=== PATIENT | female | born 1940 | race African-American/Black ===

== ENCOUNTER 2017-12-29 16:41 | Emergency (ER) | payer OTHER, MEDICAID ==
[~2017-12-29] VITALS: Ht 170.2 cm; Wt 63.5 kg
[2017-12-29] MEDS ORDERED: SODIUM CHLORIDE 0.9% 1,000 ML IV ONE (18:00)
[2017-12-29 19:26] LABS: CLARITY URINE CLEAR (CLEAR); COLOR URINE YELLOW (YELLOW); KETONES URINE TRACE (NEGATIVE); LEUKOCYTE ESTERASE URINE NEGATIVE (NEGATIVE); NITRITE URINE NEGATIVE (NEGATIVE); OCCULT BLOOD URINE NEGATIVE (NEGATIVE); PH URINE 6.5 (4.5-8.0); PROTEIN URINE NEGATIVE (NEGATIVE); SPECIFIC GRAVITY URINE 1.012 (1.005-1.030)
[2017-12-29 19:42] LABS: BASOPHILS % 0.6 % (0.0-2.0); HEMOGLOBIN. 12.3 g/dL (12.0-16.0); LYMPHOCYTES % 12.5 % (20.0-50.0); MEAN CORPUSCULAR HEMOGLOBIN 28.9 pg (28.0-32.0); MEAN CORPUSCULAR VOLUME 89.3 fL (81.0-99.0); MEAN PLATELET VOLUME 8.3 fl (7.4-10.4); MONOCYTES % 7.5 % (2.0-8.0); NEUTROPHILS % 79.4 % (40.0-76.0); PLATELET 244 x1000/uL (130-400); RED BLOOD CELL COUNT 4.25 mill/uL (4.2-5.4)
[2017-12-29 19:46] LABS: CHLORIDE 106 mEq/L (98-107)
[2017-12-29] MEDS ORDERED: ZOLPIDEM TARTRATE 5MG TABLET PO PRN (20:15)
[2017-12-29] MEDS ORDERED: MAGNESIUM/ALUMINUM HYDROXIDE/SIMETHICONE 30ML UDC PO PRN (20:15)
[2017-12-29] MEDS ORDERED: ENOXAPARIN 40MG/0.4ML SYR SUBCUT SCH (20:15)
[2017-12-29] MEDS ORDERED: ACETAMINOPHEN 325MG TABLET PO PRN (20:15)
[2017-12-29] MEDS ORDERED: GUAIFENESIN 200MG/10ML SUGAR FREE UDC PO PRN (20:15)
[2017-12-29] MEDS ORDERED: NA PHOS,M-B/NA PHOS,DI-BA ENEMA 118ML PR PRN (20:15)
[2017-12-29] MEDS ORDERED: DOCUSATE SODIUM 100MG CAPSULE PO PRN (20:15)
[2017-12-29] MEDS ORDERED: IPRATROPIUM/ALBUTEROL 0.5-3(2.5)MG/3ML NEB INH PRN (20:15)
[2017-12-29] MEDS ORDERED: NITROGLYCERIN 0.4MG TABLET SL SL PRN (20:15)
[2017-12-29] MEDS ORDERED: TRAMADOL 50MG TABLET PO PRN (20:15)
[2017-12-29] MEDS ORDERED: ONDANSETRON HCL 4MG/2ML INJ IV PRN (20:15)
[2017-12-29] MEDS ORDERED: CLONIDINE 0.1MG TABLET PO PRN (20:15)
[2017-12-29 20:49] LABS: T4 FREE 0.92 ng/dL (0.76-1.46)
[2017-12-29] MEDS ORDERED: FAMOTIDINE 20MG TABLET PO SCH (21:00)
[2017-12-29] MEDS ORDERED: ASCORBIC ACID 500 MG TABLET PO SCH (21:00)
[2017-12-29 21:32] LABS: FOLIC ACID (FOLATE) SERUM 15.8 ng/mL (>5.38)
[2017-12-29] MEDS ORDERED: ACETAMINOPHEN 325MG TABLET PO ONE (21:45)
[2017-12-29 22:00] VITALS: BP 144/84
[2017-12-30] MEDS ORDERED: ASPIRIN 325MG EC TABLET PO SCH (09:00)
== END 2017-12-29 22:15 | disposition left against medical advice (07) ==
LOC: ER 16:41 → EDBEDREQ 19:56 → EDBEDREQTM 19:56 → SUPCPDRO 20:09 → ENRESERV 20:12 → CANBEDREQ 21:50 → ER 22:15
DX: R55 Syncope and collapse (principal); R53.1 Weakness; I10 Essential (primary) hypertension
CPT/HCPCS: 36415; 70450; 71045; 80053; 80061; 81003; 82607; 82746; 83036; 83605; 83880; 84439; 84443; 84484; 85025; 96360; 99285; J7030

== ENCOUNTER 2023-03-17 17:09 | Emergency (ER) | payer OTHER, MEDICAID ==
[~2023-03-17] VITALS: Ht 165.1 cm; Wt 63.5 kg
[2023-03-17 17:11] VITALS: BP 156/76; PULSE 90; RESP 16; TEMP 98.6; O2SAT 97
[2023-03-17 18:07] LABS: BASOPHILS % 1.5 % (0.0-2.0); EOSINOPHILS % 1.1 % (0.0-5.0); HEMATOCRIT. 38.5 % (36.0-48.0); HEMOGLOBIN. 12.8 g/dL (12.0-16.0); LYMPHOCYTES % 13.2 % (20.0-50.0); MEAN CORPUSCULAR HEMOGLOBIN 29.3 pg (28.0-32.0); MEAN CORPUSCULAR HGB CONC 33.2 g/dL (31.0-37.0); MEAN CORPUSCULAR VOLUME 88.2 fL (81.0-99.0); MEAN PLATELET VOLUME 8.7 fl (7.4-10.4); MONOCYTES % 7.2 % (2.0-8.0); PLATELET 217 x1000/uL (130-400); RED BLOOD CELL COUNT 4.36 mill/uL (4.2-5.4); RED CELL DISTRIBUTION WIDTH 13.7 % (11.6-14.6)
[2023-03-17 18:15] LABS: PROTHROMBIN TIME 10.9 sec (9.6-11.0)
[2023-03-17 18:21] LABS: ALANINE AMINOTRANSFERASE 9 IU/L (10-49); ALBUMIN 4.4 g/dL (3.2-4.8); ASPARTATE AMINOTRANSFERASE 21 IU/L (<34); BILIRUBIN TOTAL 0.4 mg/dL (0.1-1.0); CALCIUM 9.5 mg/dL (8.7-10.4); CARBON DIOXIDE 23 mEq/L (21-32); CHLORIDE 102 mEq/L (98-107); CREATININE 0.7 mg/dL (0.6-1.0); GLUCOSE 95 mg/dL (70-105); PROTEIN TOTAL 8.2 g/dL (6.0-8.3); SODIUM 137 mEq/L (136-145); TROPONIN I HIGH SENSITIVITY 12 ng/L (3.0-34); UREA NITROGEN BLOOD 21 mg/dL (9-23)
== END 2023-03-17 21:12 | disposition home or self-care (01) ==
LOC: ER 17:09
DX: R42 Dizziness and giddiness (principal); R53.1 Weakness; I10 Essential (primary) hypertension
CPT/HCPCS: 36415; 80053; 84484; 85025; 93005; 99284

== ENCOUNTER 2024-04-12 11:28 | Emergency (ER) | payer BC, MEDICAID ==
[~2024-04-12] VITALS: Ht 160 cm; Wt 64.0 kg
[2024-04-12 11:30] VITALS: O2SAT 98
[2024-04-12] MEDS ORDERED: FLUORESCEIN SODIUM 1MG/STRIP BOTHEYE ONE (12:30)
[2024-04-12] MEDS ORDERED: TETRACAINE 0.5% OPHTH DROPS 4ML BOTHEYE ONE (12:30)
[2024-04-12 13:12] LABS: BASOPHILS % 1.3 % (0.0-2.0); EOSINOPHILS % 0.5 % (0.0-5.0); HEMATOCRIT. 38.3 % (36.0-48.0); HEMOGLOBIN. 12.6 g/dL (12.0-16.0); LYMPHOCYTES % 14.2 % (20.0-50.0); MEAN CORPUSCULAR HEMOGLOBIN 29.5 pg (28.0-32.0); MEAN CORPUSCULAR HGB CONC 32.8 g/dL (31.0-37.0); MEAN CORPUSCULAR VOLUME 89.9 fL (81.0-99.0); MEAN PLATELET VOLUME 8.3 fl (7.4-10.4); MONOCYTES % 4.8 % (2.0-8.0); NEUTROPHILS % 79.2 % (40.0-76.0); PLATELET 248 x1000/uL (130-400); RED BLOOD CELL COUNT 4.26 mill/uL (4.2-5.4); RED CELL DISTRIBUTION WIDTH 13.3 % (11.6-14.6); WHITE BLOOD COUNT 4.6 x1000/uL (4.5-11.0)
[2024-04-12 13:21] LABS: CHLORIDE 111 mEq/L (98-107); POTASSIUM 3.4 mEq/L (3.5-5.1); SODIUM 142 mEq/L (136-145)
[2024-04-12 13:22] LABS: CALCIUM 9.3 mg/dL (8.7-10.4); CARBON DIOXIDE 21 mEq/L (21-32)
[2024-04-12 13:27] LABS: GLUCOSE 115 mg/dL (70-105); UREA NITROGEN BLOOD 8 mg/dL (9-23)
[2024-04-12 13:28] LABS: TROPONIN I HIGH SENSITIVITY 14 ng/L (3.0-34)
[2024-04-12] MEDS: FLUORESCEIN SODIUM 1MG/STRIP BOTHEYE NR (15:18)
[2024-04-12] MEDS: TETRACAINE 0.5% OPHTH DROPS 4ML BOTHEYE NR (17:09)
[2024-04-12 18:17] VITALS: BP 140/79; PULSE 88; RESP 16; TEMP 36.7; O2SAT 98
== END 2024-04-12 18:30 | disposition home or self-care (01) ==
LOC: ER 11:28
DX: H53.2 Diplopia (principal); I10 Essential (primary) hypertension
CPT/HCPCS: 36415; 80048; 84484; 85025; 99284

== ENCOUNTER 2024-04-25 18:49 | Inpatient (IN) | payer BC, MEDICAID, MEDICARE ==
[~2024-04-25] VITALS: Ht 165.1 cm; Wt 63.5 kg
[2024-04-25 21:26] LABS: BASOPHILS % 0.9 % (0.0-2.0); EOSINOPHILS % 1.1 % (0.0-5.0); HEMATOCRIT. 36.4 % (36.0-48.0); LYMPHOCYTES % 10.6 % (20.0-50.0); MEAN CORPUSCULAR HEMOGLOBIN 29.9 pg (28.0-32.0); MEAN CORPUSCULAR VOLUME 90.5 fL (81.0-99.0); MONOCYTES % 6.5 % (2.0-8.0); NEUTROPHILS % 80.9 % (40.0-76.0); PLATELET 208 x1000/uL (130-400); RED BLOOD CELL COUNT 4.02 mill/uL (4.2-5.4); RED CELL DISTRIBUTION WIDTH 13.8 % (11.6-14.6); WHITE BLOOD COUNT 3.9 x1000/uL (4.5-11.0)
[2024-04-25 21:30] LABS: CHLORIDE 110 mEq/L (98-107); POTASSIUM 4.2 mEq/L (3.5-5.1); SODIUM 147 mEq/L (136-145)
[2024-04-25] MEDS: SODIUM CHLORIDE 0.9% 1,000 ML IV ONE (21:30)
[2024-04-25 21:31] LABS: CALCIUM 9.3 mg/dL (8.7-10.4); CARBON DIOXIDE 29 mEq/L (21-32)
[2024-04-25 21:36] LABS: CREATININE 0.7 mg/dL (0.6-1.0); GLUCOSE 104 mg/dL (70-105); UREA NITROGEN BLOOD 15 mg/dL (9-23)
[2024-04-25 21:36] LABS: GLUCOSE URINE NEGATIVE (NEGATIVE); KETONES URINE NEGATIVE (NEGATIVE)
[2024-04-25 21:38] LABS: TROPONIN I HIGH SENSITIVITY 13 ng/L (3.0-34)
[2024-04-25 21:51] LABS: CLARITY URINE CLEAR (CLEAR); COLOR URINE YELLOW (YELLOW); OCCULT BLOOD URINE NEGATIVE (NEGATIVE); PH URINE 7.5 (4.5-8.0); PROTEIN URINE NEGATIVE (NEGATIVE); SPECIFIC GRAVITY URINE 1.003 (1.005-1.030)
[2024-04-25 21:52] LABS: LEUKOCYTE ESTERASE URINE TRACE (NEGATIVE); NITRITE URINE NEGATIVE (NEGATIVE); UROBILINOGEN URINE 0.2 E.U./dL (0.2-1.0)
[2024-04-25 21:57] LABS: BACTERIA URINE NONE SEEN; RBC URINE 0-2 /hpf (0-2); SQUAMOUS EPITHELIAL CELL URINE RARE /lpf (RARE/1+); WBC URINE 0-2 /hpf (0-2)
[2024-04-25] MEDS: CEFTRIAXONE 1GM/50ML 50 ML IV ONE (22:00)
[2024-04-25 22:15] LABS: PARTIAL THROMBOPLASTIN TIME 27.5 sec (23.4-31.0); PROTHROMBIN TIME 10.4 sec (9.6-11.0)
[2024-04-26] MEDS: CLONIDINE 0.1MG TABLET PO NR (00:10)
[2024-04-26] MEDS: CEFTRIAXONE 1GM/50ML 50 ML IV NR (00:19)
[2024-04-26] MEDS ORDERED: ONDANSETRON HCL 4MG/2ML INJ IV PRN (00:45)
[2024-04-26] MEDS ORDERED: ACETAMINOPHEN 325MG TABLET PO PRN (00:45)
[2024-04-26] MEDS ORDERED: HYDROCODONE/ACETAMINOPHEN 5/325MG TABLET PO PRN (00:45)
[2024-04-26] MEDS ORDERED: MECLIZINE 25MG TABLET PO PRN (00:45)
[2024-04-26] MEDS: CLONIDINE 0.1MG TABLET PO PRN (00:54)
[2024-04-26 01:04] VITALS: BP 179/85; PULSE 68; RESP 20; TEMP 36.6
[2024-04-26 04:00] VITALS: BP 117/54; PULSE 57; RESP 18; TEMP 36.4; O2SAT 99
[2024-04-26 07:14] LABS: TROPONIN I HIGH SENSITIVITY 14 ng/L (3.0-34)
[2024-04-26 07:23] LABS: HEPATITIS B SURFACE ANTIGEN NEGATIVE (Negative)
[2024-04-26 07:44] LABS: HEPATITIS C AB NON REACTIVE (Neg) (Negative)
[2024-04-26 08:00] VITALS: BP 146/73; PULSE 59; RESP 18; TEMP 36.9; O2SAT 98
[2024-04-26] MEDS: AMLODIPINE 10MG TABLET PO SCH (10:02)
[2024-04-26] MEDS: LOSARTAN 100 MG TABLET PO SCH (10:03)
[2024-04-26] MEDS: ASPIRIN 81MG EC TABLET PO SCH (10:03)
[2024-04-26] MEDS: PANTOPRAZOLE 40MG DR TABLET PO SCH (10:03)
[2024-04-26] MEDS: ENOXAPARIN 30MG/0.3ML SYR SUBCUT SCH (10:03)
[2024-04-26 12:00] VITALS: BP 123/59; PULSE 59; RESP 18; TEMP 36.5; O2SAT 98
[2024-04-26 16:00] VITALS: BP 129/61; PULSE 68; RESP 20; TEMP 36.8; O2SAT 97
[2024-04-26 20:00] VITALS: BP 100/58; PULSE 57; RESP 18; TEMP 36.1; O2SAT 97
[2024-04-27] VITALS: BP 152/66; PULSE 60; RESP 18; TEMP 36.1; O2SAT 98
[2024-04-27 04:00] VITALS: BP 171/69; PULSE 62; RESP 18; TEMP 36.4; O2SAT 98
[2024-04-27 07:56] LABS: CARBON DIOXIDE 26 mEq/L (21-32); CHLORIDE 107 mEq/L (98-107); POTASSIUM 3.6 mEq/L (3.5-5.1); SODIUM 142 mEq/L (136-145)
[2024-04-27 07:58] LABS: CALCIUM 8.9 mg/dL (8.7-10.4)
[2024-04-27 08:00] VITALS: BP 134/70; PULSE 66; RESP 19; TEMP 36.4; O2SAT 98
[2024-04-27 08:02] LABS: CREATININE 0.6 mg/dL (0.6-1.0); GLUCOSE 112 mg/dL (70-105); UREA NITROGEN BLOOD 11 mg/dL (9-23)
[2024-04-27 08:05] LABS: BASOPHILS % 0.8 % (0.0-2.0); EOSINOPHILS % 3.1 % (0.0-5.0); HEMATOCRIT. 32.2 % (36.0-48.0); HEMOGLOBIN. 10.5 g/dL (12.0-16.0); LYMPHOCYTES % 22.3 % (20.0-50.0); MEAN CORPUSCULAR HEMOGLOBIN 28.7 pg (28.0-32.0); MEAN CORPUSCULAR HGB CONC 32.7 g/dL (31.0-37.0); MEAN CORPUSCULAR VOLUME 87.8 fL (81.0-99.0); MEAN PLATELET VOLUME 9.1 fl (7.4-10.4); MONOCYTES % 10.2 % (2.0-8.0); NEUTROPHILS % 63.6 % (40.0-76.0); PLATELET 160 x1000/uL (130-400); RED BLOOD CELL COUNT 3.66 mill/uL (4.2-5.4); RED CELL DISTRIBUTION WIDTH 13.7 % (11.6-14.6); WHITE BLOOD COUNT 4.1 x1000/uL (4.5-11.0)
[2024-04-27 12:00] VITALS: BP 170/76; PULSE 59; RESP 19; TEMP 36.4; O2SAT 97
[2024-04-27 12:03] VITALS: BP 160/76; PULSE 18; TEMP 97.6; O2SAT 99
[2024-04-27 13:00] VITALS: BP 160/70; PULSE 60; RESP 18; TEMP 36.4; O2SAT 99
== END 2024-04-27 15:21 | disposition home health service (06) | DRG 305 ==
LOC: ER 18:49 → 7WST 21:58 → EDBEDREQ 22:03 → EDBEDREQTM 22:03
PROVIDERS: ADMIT Internal Medicine; ATTEND Internal Medicine
DX: I16.0 Hypertensive urgency (principal); I10 Essential (primary) hypertension; F41.9 Anxiety disorder, unspecified
CPT/HCPCS: 36415; 71045; 80048; 80061; 81003; 83036; 83880; 84484; 85025; 86705; 87340; 93005; 99285; A4606; J0696; J1650; J7030

== ENCOUNTER 2024-09-03 14:28 | Emergency (ER) | payer BC, MEDICAID ==
[~2024-09-03] VITALS: Ht 170.2 cm; Wt 57.0 kg
[~2024-09-03 14:28] MED LIST: BUSP10TA3 MT; LISI-186 MT
[2024-09-03 14:31] VITALS: O2SAT 99
[2024-09-03 15:24] LABS: BASOPHILS % 1.1 % (0.0-2.0); EOSINOPHILS % 0.7 % (0.0-5.0); HEMATOCRIT. 37.3 % (36.0-48.0); HEMOGLOBIN. 12.0 g/dL (12.0-16.0); LYMPHOCYTES % 13.9 % (20.0-50.0); MEAN PLATELET VOLUME 9.2 fl (7.4-10.4); MONOCYTES % 5.8 % (2.0-8.0); NEUTROPHILS % 78.5 % (40.0-76.0); PLATELET 226 x1000/uL (130-400); RED BLOOD CELL COUNT 4.19 mill/uL (4.2-5.4); RED CELL DISTRIBUTION WIDTH 14.5 % (11.6-14.6)
[2024-09-03 15:28] LABS: CREATININE 0.9 mg/dL (0.6-1.0); TROPONIN I HIGH SENSITIVITY 11 ng/L (3.0-34); UREA NITROGEN BLOOD 13 mg/dL (9-23)
[2024-09-03 15:29] LABS: ASPARTATE AMINOTRANSFERASE 23 IU/L (<34)
[2024-09-03 15:30] LABS: BILIRUBIN DIRECT < 0.1 mg/dL (<=3.0); BILIRUBIN TOTAL 0.2 mg/dL (0.1-1.0); PROTEIN TOTAL 7.1 g/dL (6.0-8.3)
[2024-09-03 16:05] LABS: BG BASE EXCESS -4.7 mmol/L (-2.0-3.0); BG CARBOXYHEMOGLOBIN 0.4 % (0.5-1.5); BG DEOXYHEMOGLOBIN 2.1 % (0.0-5.0); BG FRACTION INSPIRED OXYGEN 21; BG HCO3 ACT 17.7 mmol/L (21.0-28.0); BG METHEMOGLOBIN 0.3 % (0.5-1.5); BG OXYGEN SATURATION 97.9 % (94.0-98.0); BG OXYHEMOGLOBIN 97.2 % (94.0-98.0); BG PCO2 26.0 mmHg (32.0-45.0); BG PH 7.451 (7.350-7.450); BG PO2 100.8 mmHg (83.0-108.0); BG SAMPLE SITE RIGHT RADIAL; BG TOTAL HEMOGLOBIN 12.7 g/dL (12.0-16.0); BG VENT MODE ROOM AIR
[2024-09-03 16:07] LABS: INR 1.1
[2024-09-03] MEDS: ACETAMINOPHEN 325MG TABLET PO ONE (16:53)
[2024-09-03 17:09] LABS: CLARITY URINE CLEAR (CLEAR); COLOR URINE YELLOW (YELLOW); GLUCOSE URINE NEGATIVE (NEGATIVE); KETONES URINE 1+ (NEGATIVE); LEUKOCYTE ESTERASE URINE NEGATIVE (NEGATIVE); NITRITE URINE NEGATIVE (NEGATIVE); OCCULT BLOOD URINE NEGATIVE (NEGATIVE); PH URINE 6.0 (4.5-8.0); PROTEIN URINE NEGATIVE (NEGATIVE); SPECIFIC GRAVITY URINE 1.006 (1.005-1.030); UROBILINOGEN URINE 0.2 E.U./dL (0.2-1.0)
[2024-09-03] MEDS: POLYVINYL ALCOHOL OPHTH DROPS 15ML BOTHEYE SCH (17:29)
[2024-09-03 17:45] LABS: TROPONIN I HIGH SENSITIVITY 11 ng/L (3.0-34)
[2024-09-03 18:45] VITALS: TEMP 36.9
[2024-09-03 20:11] VITALS: BP 148/74; PULSE 76; RESP 12; O2SAT 99
== END 2024-09-03 20:30 | disposition home or self-care (01) ==
LOC: ER 14:28
DX: R42 Dizziness and giddiness (principal); I10 Essential (primary) hypertension; Z79.899 Other long term (current) drug therapy
CPT/HCPCS: 36415; 36600; 71045; 80048; 80076; 81003; 82375; 82805; 84484; 85025; 93005; 99285; A4606